=== PATIENT | female | born 1950 | race Two or more races ===

== ENCOUNTER 2017-08-02 06:25 | Day surgery (SDC) | payer OTHER ==
[~2017-08-02 06:25] MED LIST: AGRYLIN0.5 MG PO; CRESTOR5 MG PO; HYZAAR 50-12.51 EACH PO; PROTONIX40 MG PO; SINGULAIR10 MG PO; SYNTHROID75 MCG PO
[2017-08-02] MEDS ORDERED: MOTRIN IB200 MG PO (12:17)
== END 2017-08-02 14:45 | disposition home or self-care (01) ==
LOC: CIR.AMB 06:25
DX: N84.0 Polyp of corpus uteri (principal); N95.0 Postmenopausal bleeding